=== PATIENT | female | born 1940 | race Two or more races ===

== ENCOUNTER → 2025-03-04 | Emergency (ER) | payer OTHER ==
[~2025-03-04] VITALS: Ht 175.3 cm; Wt 58.5 kg
[~2025-03-04] MED LIST: CT SWABBABLE VALVE TRANS SET 1 EA INFUS.SET MC ONE; IOHEXOL-350 100 ML VIAL IV ONE; IV NS 0.9% 250 ML IV ONE; LIDOCAINE 2%-EPI 1:100,000 30 ML VIAL ONE; OXYMETAZOLINE HCL NASAL SPRAY 30 ML BOTTLE NS ONE; TENECTEPLASE 50 MG KIT IV ONE; TRANEXAMIC ACID 1,000 MG/10 ML VIAL ONE
[2025-03-04 13:00] VITALS: TEMP 98.5
[2025-03-04 13:34] LABS: PLATELET COUNT (AUTO) 191 K/uL (150-450); RED BLOOD CELL COUNT(AUTO) 3.70 MIL/uL (4.0-5.2); RED CELL DISTRIBUTION WIDTH 13.8 % (11.5-15.0); WHITE BLOOD COUNT (AUTO) 5.7 K/uL (4.3-11.0)
[2025-03-04 13:43] LABS: CALCIUM, SERUM 9.0 mg/dL (8.5-10.1); CREATININE 1.4 mg/dL (0.6-1.3); SODIUM SERUM 139.0 mmol/L (136-145); UREA NITROGEN, BLOOD 28.0 mg/dL (7-18)
[2025-03-04] MEDS: TENECTEPLASE 50 MG KIT IV ONE (13:46)
[2025-03-04 14:24] LABS: INR 1.01 (0.91-1.10)
[2025-03-04 15:45] VITALS: BP 140/88; O2SAT 99
[2025-03-04] MEDS: TRANEXAMIC ACID 1,000 MG/10 ML VIAL IR ONE (15:54)
[2025-03-04] MEDS: OXYMETAZOLINE HCL NASAL SPRAY 30 ML BOTTLE NS ONE (15:54)
[2025-03-04] MEDS: LIDOCAINE 2%-EPI 1:100,000 30 ML VIAL TP ONE (15:55)
== END | disposition short-term general hospital (02) ==
LOC: ER 13:00
DX: I63.89 Other cerebral infarction (principal); R53.1 Weakness; F29 Unspecified psychosis not due to a substance or known physiological condition; E11.9 Type 2 diabetes mellitus without complications; I10 Essential (primary) hypertension; R29.810 Facial weakness; Z79.02 Long term (current) use of antithrombotics/antiplatelets; Z86.73 Personal history of transient ischemic attack (TIA), and cerebral infarction without residual deficits
CPT/HCPCS: 30905; 36415; 37195; 70450; 70496; 70498; 80048; 85025; 85730; 93005; 99291; A4223; A6403; J3101; J3490; J7030; J7050; Q9967